=== PATIENT | female | born 1965 | race Caucasian/White ===

== ENCOUNTER 2018-10-18 08:40 | Emergency (ER) | payer OTHER, BC ==
[2018-10-18] MEDS: DIPHTH/TET/ACEL PERTUSS (ADULT) 0.5 ML VIAL IM* (08:54)
[2018-10-18] MEDS: HYDROCODONE/APAP (5/325) TAB PO (08:54)
[2018-10-18] MEDS: ONDANSETRON (ODT) 4 MG TAB ODT (08:54)
[2018-10-18] MEDS: LIDOCAINE 1%/EPI (1:100,000) (MDV) 20 ML INJ (09:06)
[2018-10-18] MEDS: LIDOCAINE 1%/EPI 30 ML INJ INJ (09:06)
== END 2018-10-18 11:03 | disposition home or self-care (01) ==
LOC: E/R 08:40
DX: S01.81XA Laceration without foreign body of other part of head, initial encounter (principal); R40.2142 Coma scale, eyes open, spontaneous, at arrival to emergency department; R40.2362 Coma scale, best motor response, obeys commands, at arrival to emergency department; R40.2252 Coma scale, best verbal response, oriented, at arrival to emergency department; W18.49XA Other slipping, tripping and stumbling without falling, initial encounter; Y92.9 Unspecified place or not applicable; Z23 Encounter for immunization
CPT/HCPCS: 12013; 90471; 90715; 99283-25